=== PATIENT | female | born 1985 | race African-American/Black ===

== ENCOUNTER 2019-02-14 00:26 | Outpatient (CLI) | payer OTHER ==
[~2019-02-14] VITALS: Ht 165.1 cm; Wt 70.3 kg
--- NOTE | 2019-02-14 00:35 | NUR ---
MICHELLE AGUILAR presented to unit via ambulation from home/ED, accompanied by SO, with c/o LOWER ABD PAIN. MICHELLE AGUILAR weighed, gowned, voided, and to bed. EFHM and TOCO applied, VS taken. MICHELLE AGUILAR oriented to bed controls, call light, TV, heat, and A/C controls.
[2019-02-14 00:44] VITALS: BP 121/84
[2019-02-14 00:53] LABS: BILIRUBIN,URINE NEGATIVE (NEGATIVE); CLARITY,URINE CLEAR; COLOR,URINE YELLOW; GLUCOSE, URINE (UA) NEGATIVE (NEGATIVE); KETONES,URINE NEGATIVE (NEGATIVE); LEUKOCYTE ESTERASE ,URINE NEGATIVE (NEGATIVE); NITRITE,URINE NEGATIVE (NEGATIVE); PH,URINE 7 (5-9); PROTEIN,URINE NEGATIVE (NEGATIVE); UROBILINOGEN,URINE NORMAL (NORMAL)
[2019-02-14] MEDS ORDERED: PREN-142 PO (01:00)
[2019-02-14 01:07] LABS: BACTERIA,URINE TRACE /HPF; SQUAMOUS EPITHELIAL CELL,UR 0-2 /HPF
[2019-02-14 01:49] LABS: BASOPHILS % (AUTO) 0 % (0-10); EOSINOPHILS % (AUTO) 0 % (0-10); HEMATOCRIT 37 % (35-52); HEMOGLOBIN 12.2 G/DL (11.5-16.0); LYMPHOCYTES # (AUTO) 2.1 X 10^3 (1.0-4.0); LYMPHOCYTES % (AUTO) 18 % (12-44); MEAN CORPUSCULAR HEMOGLOBIN 27 PG (25-34); MEAN CORPUSCULAR HGB CONC 33 G/DL (32-36); MEAN CORPUSCULAR VOLUME 81 FL (80-99); MEAN PLATELET VOLUME 10.6 FL (7.4-10.4); MONOCYTES # (AUTO) 1.3 X 10^3 (0.0-1.0); MONOCYTES % (AUTO) 11 % (0-12); NEUTROPHILS # (AUTO) 8.3 X 10^3 (1.8-7.8); NEUTROPHILS % (AUTO) 71 % (42-75); PLATELET COUNT 213 10^3/uL (130-400); RED CELL DISTRIBUTION WIDTH 15.6 % (10.0-14.5); WHITE BLOOD COUNT 11.7 10^3/uL (4.3-11.0)
[2019-02-14 01:56] VITALS: BP 129/82
[2019-02-14 01:57] LABS: BILIRUBIN,URINE NEGATIVE (NEGATIVE); CLARITY,URINE CLEAR; COLOR,URINE YELLOW; GLUCOSE, URINE (UA) NEGATIVE (NEGATIVE); KETONES,URINE 3+ (NEGATIVE); LEUKOCYTE ESTERASE ,URINE NEGATIVE (NEGATIVE); NITRITE,URINE NEGATIVE (NEGATIVE); PH,URINE 6 (5-9); PROTEIN,URINE NEGATIVE (NEGATIVE); UROBILINOGEN,URINE NORMAL (NORMAL)
[2019-02-14 02:13] LABS: BACTERIA,URINE FEW /HPF; RBC,URINE RARE /HPF; SQUAMOUS EPITHELIAL CELL,UR RARE /HPF
[2019-02-14] MEDS ORDERED: D5 LR IV SOLUTION 1,000 ML IV ONE (02:16)
[2019-02-14] MEDS ORDERED: IBUPROFEN 800 MG (MOTRIN) TAB PO ONE ×2 (02:16→02:45)
--- NOTE | 2019-02-14 02:50 | NUR ---
D/C instructions given & explained & questions answered regarding POC per H. Larry, RN, pt. & SO both verbalized understanding. Copy of D/C instructions to pt. Pt. left [facility] ambulatory escorted by SO, to home (hotel) via private vehicle.
--- NOTE | 2019-02-15 08:09 | Physician Query-Final Dx ---
ROSA ZENDEJAS 02/15/19 0809: Clinic Account Progress/Dx Physician Query: Please give diagnosis Please include weeks gestation Date of Service Feb 14, 2019 at 00:26 ANNIKA ZALDIVAR 02/15/19 1234: ROSA ZENDEJAS Feb 15, 2019 08:09 ANNIKA ZALDIVAR Feb 15, 2019 12:34
== END 2019-02-14 02:50 | disposition home or self-care (01) ==
LOC: WSo 00:26 → LDRP 00:32 → WSo 02:50
PROVIDERS: ATTEND Obstetrics & Gynecology
DX: O99.89 Other specified diseases and conditions complicating pregnancy, childbirth and the puerperium (principal); R10.9 Unspecified abdominal pain; Z3A.23 23 weeks gestation of pregnancy
CPT/HCPCS: 36415; 81000; 85025; 87088; 99214